=== PATIENT | female | born 1940 | race American Indian/Alaskan Native ===

== ENCOUNTER 2019-07-06 05:48 | Emergency (ER) | payer MEDICARE ==
[2019-07-06] MEDS ORDERED: VALIUM PO ONE (07:56)
[2019-07-06] MEDS ORDERED: DECADRON IM ONE (07:56)
[2019-07-06] MEDS ORDERED: TORADOL PO NR (07:56)
--- NOTE | 2019-07-06 08:00 | Emergency Department Report ---
ED Back Pain/Injury HPI - General Chief Complaint: Extremity Injury, Lower Stated Complaint: BACK PAIN Time Seen by Provider: 07/06/19 07:56 Source: patient, family Limitations: Physical Limitation - History of Present Illness Initial Comments: reports she was feeling fine, went to turn a mattress herself yesterday, and began to have R flank/back pain radiate to knee no nausea, vomiting, numbness, fever, urinary/bowel complaints. MD Complaint: back pain -: Sudden, days(s) (1) Similar Symptoms Previously: No Place: home Radiation: right leg Severity: moderate Severity scale (0 -10): 6 Quality: sharp, aching Consistency: constant Improves With: immobilization Worsens With: movement Context: while lifting, turning/twisting Associated Symptoms: denies other symptoms - Related Data Previous Rx's Medication Instructions Recorded Last Taken Type Cyclobenzaprine [Flexeril] 10 mg PO TID PRN #15 tablet 07/06/19 Unknown Rx Lidocaine [Lidoderm] 1 each TP DAILY #15 adh..patch 07/06/19 Unknown Rx Naproxen [Naprosyn] 500 mg PO BID #20 tablet 07/06/19 Unknown Rx Allergies Allergy/AdvReac Type Severity Reaction Status Date / Time No Known Allergies Allergy Verified 07/06/19 05:58 ED Review of Systems ROS: Stated complaint: BACK PAIN Other details as noted in HPI Comment: All other systems reviewed and negative Musculoskeletal: as per HPI ED Past Medical Hx - Past Medical History Sarcoidosis, hemangioms spine. 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 Demtoyositis, Ulcer. osteoporosis. 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 No distress. Alert and acting appropriately. Back/Abdomen: Yes Perilumbar Tenderness, Yes Straight Leg Raise Pain, No Abdominal Tenderness, No Perithoracic Tenderness, No Sacroiliac Tenderness, No Flank Tenderness Neuro: Yes Normal Sensation, Yes Normal DTR's, Yes Normal Gait, No Motor Weakness ED Medical Decision Making - Radiology Data Radiology results: report reviewed neg L spine - Medical Decision Making muscle -pain after twisting yesterday well appearing, no red flags low suspicion serious pathology given toradol decadron, valium fu pcp - Differential Diagnosis strain,sciatica, unlikely stone/uti, unlikely dissection Critical care attestation.: If time is entered above; I have spent that time in minutes in the direct care of this critically ill patient, excluding procedure time. ED Disposition Clinical Impression: Back strain Qualifiers: Encounter type: initial encounter Qualified Code(s): S39.012A - Strain of muscle, fascia and tendon of lower back, initial encounter Disposition: TO HOME OR SELFCARE Is pt being admited?: No Condition: Good Instructions: Muscle Strain (ED) Prescriptions: Cyclobenzaprine [Flexeril] 10 mg PO TID PRN #15 tablet PRN Reason: Muscle Spasm Lidocaine [Lidoderm] 1 each TP DAILY #15 adh..patch Naproxen [Naprosyn] 500 mg PO BID #20 tablet Referrals: CARMENA[facility] VENCES [Other] - 3-5 Days Time of Disposition: 08:53
[2019-07-06 08:33] VITALS: BP 145/57
--- NOTE | 2019-07-06 08:45 | XRay Report ---
. LUMBAR SPINE 3 VIEWS INDICATION / CLINICAL INFORMATION: back pain. COMPARISON: None available. FINDINGS: VERTEBRAE: No fracture. No significant malalignment. DISC SPACES:No significant abnormality. FACET JOINTS:No significant abnormality. ADDITIONAL FINDINGS: Cholecystectomy clips right upper quadrant of abdomen. Large amount of solid sto ol characteristic for constipation IMPRESSION: 1. No significant abnormality. 2. Moderate constipation Signer Name: Timmy Al MD Signed: 07/06/2019 8:41 AM Workstation Name: [id number]
== END 2019-07-06 09:35 | disposition home or self-care (01) ==
LOC: ED 05:48
DX: S39.012A Strain of muscle, fascia and tendon of lower back, initial encounter (principal); Z79.899 Other long term (current) drug therapy; X50.0XXA Overexertion from strenuous movement or load, initial encounter; Y93.89 Activity, other specified; Y92.098 Other place in other non-institutional residence as the place of occurrence of the external cause; Y99.8 Other external cause status
CPT/HCPCS: 72100; 96372; 99283; J1100